=== PATIENT | female | born 1940 | race Caucasian/White ===

== ENCOUNTER → 2017-12-18 | Outpatient (CLI) | payer OTHER ==
[~2017-12-18] MED LIST: BAYER CHEWABLE81 MG PO; CALCIUM 600 +1 EAC1 PO; CALCIUM CITRAT1 EA14 PO; CENTRUM SILVER1 EAC4 PO; CHOLESTEROL MED; FISH OIL 1,2001 EACH PO; HYDRALAZINE 2525 M1 PO; LIPITOR20 MG PO; LISINOPRIL10 MG PO; LISINOPRIL20 MG PO; LISINOPRIL5 MG PO; MEDROLDOSEPACK PO; NORCO 5-325 TA1 EAC1 PO; NORVASC5 MG PO; PLAVIX 75 MG TA75 M1 PO; PRAVACHOL20 MG PO; PRAVASTATIN SOD20 MG PO; PROTONIX 20 MG20 M1 PO; REFRESH TEARS15 ML; REFRESH TEARS15 ML OPHTHALMIC; TRIAMCINOLONE A80 G2 TOP; VITAMIN D1000 UNI1 PO; ZPAK PO
== END ==
LOC: M.RAD 13:47
DX: Z12.31 Encounter for screening mammogram for malignant neoplasm of breast (principal)

== ENCOUNTER → 2019-01-04 | Outpatient (CLI) | payer OTHER | LOC: M.RAD 08:29 | DX: Z12.31 Encounter for screening mammogram for malignant neoplasm of breast (principal) ==

== ENCOUNTER 2019-04-11 13:54 | Inpatient (IN) | payer OTHER ==
[~2019-04-11] VITALS: Ht 149.9 cm; Wt 70.3 kg
[2019-04-11 14:04] VITALS: BP 101/80
[2019-04-11 14:25] LABS: ABSOLUTE BASOPHILS 0.1 thou/uL (0.0-0.2); ABSOLUTE EOSINOPHILS 0.2 thou/uL (0.0-0.7); ABSOLUTE LYMPHOCYTES 4.1 thou/uL (0.8-5.3); ABSOLUTE MONOCYTES 0.6 thou/uL (0.0-1.2); ABSOLUTE NEUTROPHILS 4.5 thou/uL (1.6-8.1); EOSINOPHILS 1.7 %; HEMATOCRIT 41.2 % (37.0-47.0); HEMOGLOBIN 14.2 gm/dL (12.0-15.0); LYMPHOCYTES 43.2 %; MCHC 34.5 g/dL (28.0-37.0); MCV 95.6 fL (80.0-100.0); MONOCYTES 6.3 %; MPV 9.4 fl. (7.2-11.1); NUCLEATED RBCS 0 /100WBC; PLATELET COUNT* 231 thou/uL (150-400); POLYS 47.8 %; RBC 4.31 mil/uL (4.20-5.00); RDW-CV 13.1 % (10.5-14.5); WBC 9.4 thou/uL (4.0-11.0)
[2019-04-11 14:34] LABS: PROTIME 10.5 Seconds (9.20-11.50)
[2019-04-11 14:38] LABS: CALCIUM 9.3 mg/dL (8.5-10.1); CREATININE 0.7 mg/dL (0.6-1.3); POTASSIUM 3.9 mmol/L (3.5-5.1)
[2019-04-11 14:43] LABS: ALBUMIN 4.3 g/dL (3.4-5.0); TOTAL BILIRUBIN 0.7 mg/dL (<0.1-1.0); TOTAL PROTEIN 7.8 g/dL (6.4-8.2)
--- NOTE | 2019-04-11 16:02 | EKG ---
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: [facility] : 1940 Requested By: Tyrese Galvan Order Number: [id number] MD: Mateo Tellez Measurements Intervals [place] Rate: 65 P: 59 [place]: 206 QRS: -32 QRSD: 123 T: 16 QT: 478 QTc: 498 Interpretive Statements Sinus rhythm Multiple ventricular premature complexes Right bundle branch block Inferior infarct, old Compared to ECG 06/05/2013 12:01:18 Ventricular premature complex(es) now present Myocardial infarct finding now present Sinus bradycardia no longer present Left-axis deviation no longer present Electronically Signed On 04-11-2019 16:01:25 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 /EPI
[2019-04-11 17:14] VITALS: BP 152/62
[2019-04-11 17:30] VITALS: BP 179/61
[2019-04-11] MEDS ORDERED: FOSAMAX 70 MG T70 MG PO (17:43)
--- NOTE | 2019-04-11 18:13 | NUR ---
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 PT EDDIE PAIN, N/V/D, DIZZINESS, SOA. TRACING SR ON MONITOR. REFER TO COMPUTER CHARTING FOR FURTHER DETAILS. HOURLY ROUNDING IN PLACE FOR PT SAFETY. CLWR.
[2019-04-11 20:10] VITALS: BP 125/50
[2019-04-11 21:47] LABS: CALCIUM 8.8 mg/dL (8.5-10.1); CREATININE 0.8 mg/dL (0.6-1.3); MAGNESIUM 1.8 mg/dL (1.8-2.4); POTASSIUM 3.2 mmol/L (3.5-5.1)
[2019-04-12 00:16] VITALS: BP 125/52
[2019-04-12 04:16] LABS: ABSOLUTE BASOPHILS 0.1 thou/uL (0.0-0.2); ABSOLUTE EOSINOPHILS 0.3 thou/uL (0.0-0.7); ABSOLUTE LYMPHOCYTES 2.8 thou/uL (0.8-5.3); ABSOLUTE MONOCYTES 0.7 thou/uL (0.0-1.2); ABSOLUTE NEUTROPHILS 3.8 thou/uL (1.6-8.1); BASOPHILS 0.7 %; EOSINOPHILS 3.4 %; HEMATOCRIT 37.6 % (37.0-47.0); HEMOGLOBIN 13.1 gm/dL (12.0-15.0); LYMPHOCYTES 37.1 %; MCH 33.1 pg (26.0-34.0); MCHC 34.8 g/dL (28.0-37.0); MCV 95.2 fL (80.0-100.0); MONOCYTES 9.2 %; MPV 9.7 fl. (7.2-11.1); NUCLEATED RBCS 0 /100WBC; PLATELET COUNT* 214 thou/uL (150-400); POLYS 49.6 %; RBC 3.95 mil/uL (4.20-5.00); RDW-CV 13.6 % (10.5-14.5); WBC 7.6 thou/uL (4.0-11.0)
[2019-04-12 04:42] VITALS: BP 146/53
[2019-04-12 04:46] LABS: ALBUMIN 3.4 g/dL (3.4-5.0); ALKALINE PHOSPHATASE 70 U/L (46-116); ANION GAP 7 mmol/L (7-16); BUN 16 mg/dL (7-18); CALCIUM 8.4 mg/dL (8.5-10.1); CHLORIDE 107 mmol/L (98-107); CHOLESTEROL 146 mg/dL (<200); CO2 29 mmol/L (21-32); CREATININE 0.8 mg/dL (0.6-1.3); GLUCOSE 133 mg/dL (70-99); HDL CHOLESTEROL 47 mg/dL (>40); LDL CHOLESTEROL 65 mg/dL (<100); POTASSIUM 3.7 mmol/L (3.5-5.1); SGOT 10 U/L (15-37); SGPT 20 U/L (30-65); SODIUM 143 mmol/L (136-145); TC:HDL 3.1 Ratio (Not establshd); TOTAL BILIRUBIN 0.4 mg/dL (<0.1-1.0); TOTAL PROTEIN 6.4 g/dL (6.4-8.2); TRIGLYCERIDE 170 mg/dL (<150); VLDL 34 mg/dL (<40)
[2019-04-12 04:56] LABS: SERUM ASSESSMENT CLEAR
--- NOTE | 2019-04-12 05:13 | NUR ---
PATIENT PROGRESSING TOWARDS GOALS: PATIENT STATES HER BLURRED VISION IN LEFT EYE IS IMPROVING. NIH ZERO, PATIENT STILL ABLE TO FINGER COUNT APPROPRIATELY IN ALL VISUAL CABA. PATIENT DENIES PAIN AND DISCOMFORT. CALL LIGHT WITHIN REACH
[2019-04-12 05:30] LABS: ALBUMIN 3.5 g/dL (3.4-5.0); CALCIUM 8.6 mg/dL (8.5-10.1); CREATININE 0.8 mg/dL (0.6-1.3); POTASSIUM 3.9 mmol/L (3.5-5.1); TOTAL BILIRUBIN 0.4 mg/dL (<0.1-1.0); TOTAL PROTEIN 6.1 g/dL (6.4-8.2)
[2019-04-12 08:00] VITALS: BP 145/55
[2019-04-12 11:36] VITALS: BP 139/57
--- NOTE | 2019-04-12 12:20 | NUR ---
I have reviewed the documentation by DESHAUN VAZQUEZ from 04/04/2019 to 04/12/19, and I concur with it. ARLENE VILLAR.
--- NOTE | 2019-04-12 14:29 | NUR ---
Pt having and Echo in room, CM to f/u later
[2019-04-12 15:44] VITALS: BP 178/59
--- NOTE | 2019-04-12 15:56 | 2DMMODE ---
[place] [address] 2 D/M-MODE ECHOCARDIOGRAM Name: EAMONCAMERON DAVISON Tor Room: [address] IN [facility]#: [id number] Admission: 04/11/19 Attend Phys: Jim Parks Discharge: Date of : 38 Date of Service: 04/12/19 1555 Report #: [id number] THIS REPORT FOR: cc: Kim Oneil MD, Katrina MD Liston, Michael J. MD [facility] ~ APPROVED REPORT Study performed: 04/12/2019 14:13:25 EXAM: Comprehensive 2D, Doppler, and color-flow Echocardiogram Patient Location: In-Patient Room #: [facility] Status: routine BSA: 1.65 HR: 66 bpm BP: 139/57 mmHg Rhythm: NSR Other Information Study Quality: Good Indications CVA/TIA Echo Enhancing Agent Indication: Rule out Shunt Agent(s) / Amount(s) Used: Agitated Saline 10 cc 2D Dimensions IVSd: 11.08 (7-11mm) LVOT Diam: 17.44 (18-24mm) LVDd: 39.80 mm PWd: 10.90 (7-11mm) Ascending Ao: 30.21 (22-36mm) LVDs: 22.76 (25-40mm) Aortic Root: 27.24 mm Volumes Left Atrial Volume (Systole) LA ESV Index: 20.70 mL/m2 Aortic Valve AoV Peak Lev.: 1.77 m/s AO Peak Gr.: 12.48 mmHg LVOT Max P.36 mmHg AO Mean Gr.: 6.49 mmHg LVOT Mean P.63 [place] [address] 2 D/M-MODE ECHOCARDIOGRAM Name: EAMONCAMERON Tor Room: [address] IN .R.#: [id number] Admission: 04/11/19 Attend Phys: Jim Parks Discharge: Date of : 38 Date of Service: 04/12/19 1555 Report #: [id number] LVOT Max V: 1.36 m/s AO V2 VTI: 39.70 cm LVOT Mean V: 0.88 m/s [place] (VTI): 2.15 cm2 LVOT V1 VTI: 35.76 cm AI [place]: 2.34 m/s2 AI PHT: 493.55 ms Mitral Valve MV Mean Gr.: 3.14 mmHg MV Decel. Time: 311.59 ms MV PHT: 90.36 ms MVA (PHT): 2.43 cm2 TDI Medial E' Lev.: 0.08 m/s Lateral E' Lev.: 0.08 m/s Pulmonary Valve PV Peak Lev.: 1.17 m/s PV Peak Gr.: 5.51 mmHg Tricuspid Valve RAP Estimate: 5.00 mmHg TR Peak Gr.: 26.35 mmHg RVSP: 31.00 mmHg PA Pressure: 31.00 mmHg Left Ventricle The left ventricle is normal size. There is normal LV segmental wall motion. There is normal left ventricular wall thickness. Left ventricular systolic function is normal. LVEF is 60-65%. Grade I - abnormal relaxation pattern. Right Ventricle The right ventricle is normal size. The right ventricular systolic function is normal. Atria The left atrium size is normal. The interatrial septum is intact with no evidence for an atrial septal defect. The right atrium size is normal. Aortic Valve The aortic valve is normal in structure. Mild aortic regurgitation. There is no aortic valvular stenosis. Mitral Valve There is mitral annular calcification. Mild mitral regurgitation. No evidence [place] [address] 2 D/M-MODE ECHOCARDIOGRAM Name: CAMERON KNUTSON Room: [address]#: [id number] Admission: 04/11/19 Attend Phys: Jim Parks Discharge: Date of : 38 Date of Service: 04/12/19 1555 Report #: [id number] Tricuspid Valve The tricuspid valve is normal in structure. Mild tricuspid regurgitation. The RVSP is 33 mmHg. Pulmonic Valve The pulmonary valve is normal in structure. Trace pulmonic regurgitation. Great Vessels The aortic root is normal in size. IVC is normal in size and collapses >50% with inspiration. Pericardium There is no pericardial effusion. <Conclusion> The left ventricle is normal size. There is normal left ventricular wall thickness. Left ventricular systolic function is normal. LVEF is 60-65%. Grade I - abnormal relaxation pattern. There is normal LV segmental wall motion. The interatrial septum is intact with no evidence for an atrial septal defect. Mild aortic regurgitation. Mild mitral regurgitation. Mild tricuspid regurgitation. The RVSP is 33 mmHg. <ELECTRONICALLY SIGNED> By: Mateo Tellez MD, FACC 04/12/19 1555 1555 1555 Mateo Tellez MD, FACC /INF
[2019-04-12 20:00] VITALS: BP 137/52
--- NOTE | 2019-04-12 20:03 | NUR ---
PT RESTED T/O SHIFT W/O COMPLAINT. PT COMPLAINED OF HEADACHE AT 1830. TYLENOL GIVEN. NIH 0. VSS ON RA. SR ON MONITOR. PT TO HAVE SLEEP STUDY OVER NIGHT. PT PROGRESSING TOWARDS GOALS. CLWR
[2019-04-12 23:07] LABS: GLYCOHEMOGLOBIN (HGB A1C) 6.1 % (4.8-5.6)
--- NOTE | 2019-04-13 00:25 | NUR ---
NO VITALS TAKEN AT MIDNIGHT DUE TO OVERNIGHT OXIMETRY STUDY IN PROGRESS.
--- NOTE | 2019-04-13 04:35 | NUR ---
PATIENT PROGRESSING TOWARDS GOALS: NIH UNCHANGED. PATIENT COMPLETED OVERNIGHT OXIMETRY STUDY. PATIENT INQUIRING ABOUT ORDERED TESTS FOR TODAY. INFORMED PATIENT THAT OF NOW, THERE ARE NO FURTHER TESTS THAT HAVE BEEN ORDERED. HOWEVER, PHYSICIAN WILL BE REVIEWING COMPLETED TESTS AND PLAN OF CARE WILL BE UPDATED. PATIENT VERBALIZES UNDERSTANDING. PATIENT HOPING TO BE DISCHARGED HOME TODAY. CALL LIGHT WITHIN REACH.
[2019-04-13 04:40] VITALS: BP 146/54
[2019-04-13 08:00] VITALS: BP 136/51
[2019-04-13 12:00] VITALS: BP 129/42
[2019-04-13] MEDS ORDERED: ASPIRIN EC325 M1 PO ×2 (14:46→14:49)
[2019-04-13] MEDS ORDERED: LIPITOR80 MG PO (14:48)
[2019-04-13 16:00] VITALS: BP 149/53
--- NOTE | 2019-04-13 17:20 | NUR ---
ASSUMED PT CARE AT 0700, PT A&O X4, VSS, RA, UP AD TYLOR, NIH=0, METAL FURNITURE ASSEMBLY SUPERVISOR TRACIMG SINUS RHYTHM, FULL ASSESSMENT CHARTED. PT DISCHARGED AT APPROX 1715 WITH DAUGHTER, EDUCATED ON ALL DISCHARGE INSTRUCTIONS INCLUDING MEDICATIONS AND FOLLOW UP APPOINTMENTS. METAL FURNITURE ASSEMBLY SUPERVISOR AND IV REMOVED, HOURLY ROUNDING COMPLETED.
[2019-04-13 18:29] VITALS: BP 149/53
== END 2019-04-13 19:44 | disposition home or self-care (01) | DRG 65 ==
LOC: M.ERS 13:54 → M.TBA-ER 15:04 → M.2W 15:04
PROVIDERS: Emergency Medicine Emergency Medical Services; ADMIT Internal Medicine
DX: I63.81 Other cerebral infarction due to occlusion or stenosis of small artery (principal); H34.232 Retinal artery branch occlusion, left eye; I10 Essential (primary) hypertension; E78.5 Hyperlipidemia, unspecified; K21.9 Gastro-esophageal reflux disease without esophagitis; K29.60 Other gastritis without bleeding; E78.00 Pure hypercholesterolemia, unspecified; Z90.711 Acquired absence of uterus with remaining cervical stump; Z90.49 Acquired absence of other specified parts of digestive tract; Z86.73 Personal history of transient ischemic attack (TIA), and cerebral infarction without residual deficits

== ENCOUNTER → 2019-04-24 | Outpatient (CLI) | payer OTHER ==
[~2019-04-24] MED LIST changes: +ASPIRIN EC325 M1 PO; +FOSAMAX 70 MG T70 MG PO; +LIPITOR80 MG PO
--- NOTE | 2019-04-29 18:04 | SLEEP ---
[address] [address] SLEEP STUDY REPORT Name: CAMERON KNUTSON Tor Room: [facility]#: [id number] Admission: 04/24/19 Attend Phys: Ruben Greene MD Discharge: Date of : 38 Report #: [id number] THIS REPORT FOR: //name// CC: Kim Greene This study has been reviewed in its entirety by a board certified sleep specialist DATE OF SERVICE: 04/24/2019 SLEEP STUDY The patient is 78 years old who weighs 149 pounds with a BMI of 31.1. The patient's Carnation score was 6. The patient underwent diagnostic sleep study performed at [facility]. During the night study, the patient spent 403 minutes in bed and slept for 124 minutes with a poor sleep efficiency of 31%. Sleep latency was 61 minutes with a REM latency of 303 minutes. Sleep architecture showed increased stage 1 sleep, normal stage 2 sleep, normal slow wave, and normal REM sleep. During the night study, the patient had 12 obstructive apneas, 3 central apneas, no mixed apneas, and 13 hypopneas. The patient's AHI was 13.5 per hour with a REM AHI of 17.7 per hour and a supine AHI of 19.4 per hour. EKG monitoring revealed an average heart rate of 60 beats per minute. No sustained arrhythmias observed. PLMs were seen at an index of 3.9 per hour and none caused EEG arousals. Nocturnal oximetry study revealed an average oxygen saturation of 95% with the lowest of 87%. Only 0.5 minutes were spent in oxygen saturation less than 89%. Due to low AHI, the patient did not meet the split night criteria for CPAP initiation. IMPRESSION: 1. Mild obstructive sleep apnea with moderate increase during supine and REM sleep. Total AHI 13.5 per hour with a REM AHI of 17.7 per hour and a supine AHI of 19.4 per hour. 2. No clinically significant nocturnal hypoxia. 3. No clinically significant periodic limb movements. RECOMMENDATIONS: 1. If the patient is clinically symptomatic or has comorbid [place], [place] [address] SLEEP STUDY REPORT Name: CAMERON KNUTSON Room: [facility]#: [id number] Admission: 04/24/19 Attend Phys: Ruben Greene MD Discharge: Date of : 38 Report #: [id number] consider treatment of sleep apnea with either CPAP versus oral appliance. 2. Weight loss to the ideal body weight is recommended. 3. Once the patient is optimally treated, then follow up in 4-6 weeks to assess compliance with treatment and to document clinical improvement. 4. Avoid CORRUGATOR SUPERVISOR depressants. 5. Cautioned regarding driving until symptoms of sleep apnea resolve with the above recommendations. <ELECTRONICALLY SIGNED> By: Goldy Hernandez MD 04/29/19 1804 1436 [id number] a Hernandez MD /toshia
== END ==
LOC: M.SLEEPLAB 21:00
DX: G47.33 Obstructive sleep apnea (adult) (pediatric) (principal); I63.89 Other cerebral infarction; H53.8 Other visual disturbances

== ENCOUNTER → 2019-12-23 | Outpatient (CLI) | payer OTHER | LOC: M.RAD 11:02 | PROVIDERS: ATTEND Family Medicine | DX: Z12.31 Encounter for screening mammogram for malignant neoplasm of breast (principal); M81.0 Age-related osteoporosis without current pathological fracture ==

== ENCOUNTER → 2019-12-24 | Outpatient (CLI) | payer OTHER | LOC: M.RAD 14:00 | PROVIDERS: ATTEND Family Medicine | DX: R92.2 Inconclusive mammogram (principal) ==

== ENCOUNTER → 2020-09-25 | Outpatient (CLI) | payer OTHER | END | disposition home or self-care (01) | LOC: M.ULTRA 11:00 | PROVIDERS: ATTEND Family Medicine | DX: R60.9 Edema, unspecified (principal) ==